=== PATIENT | female | born 1965 | race Caucasian/White ===

== ENCOUNTER → 2020-06-29 12:40 | Outpatient (CLI) | payer BC, SELFPAY ==
--- NOTE | ~2020-06-29 | MM_ITS ---
EXAMINATION: MM screening el BI w darrin HISTORY: Screening TECHNIQUE: Craniocaudal and mediolateral oblique 3-D tomosynthesis images were obtained and synthetic 2-D images were generated. CAD analysis was submitted and interpreted. COMPARISON: Comparison to multiple prior studies sequentially, with oldest reviewed study dated 12/2014. BREAST PARENCHYMAL COMPOSITION: The breasts are heterogeneously dense, which may obscure small masses . FINDINGS: There is no evidence of suspicious mass, calcification, or architectural distortion to sugg est malignancy in either breast. There has been no suspicious interval change. IMPRESSION: 1. No mammographic evidence of malignancy. 2. Recommend routine screening mammography in one year. BI-RADS Category 1: Negative Reviewed, dictated and finalized at location D.
== END ==
PROVIDERS: Visit Provider Obstetrics & Gynecology
DX: Z12.31 Encounter for screening mammogram for malignant neoplasm of breast (principal)
CPT/HCPCS: 77063; 77067

== ENCOUNTER → 2021-07-03 11:02 | Outpatient (CLI) | payer BC, SELFPAY ==
--- NOTE | ~2021-07-03 | MM_ITS ---
EXAMINATION: MM screening el BI w darrin HISTORY: Screening TECHNIQUE: Craniocaudal and mediolateral oblique 3-D tomosynthesis images were obtained and synthetic 2-D images were generated. CAD analysis was submitted and interpreted. COMPARISON: Comparison to multiple prior studies sequentially, with oldest reviewed study dated 04/11. BREAST PARENCHYMAL COMPOSITION: The breasts are heterogeneously dense, which may obscure small masses . FINDINGS: There are developing asymmetries in the subareolar location of the left breast on CC view. The right breast is stable without evidence for malignancy. There are scattered benign calcifications . IMPRESSION: 1. Developing left breast asymmetries. 2. Additional mammographic views and possible breast ultrasound are recommended. BI-RADS Category 0: Incomplete: Needs additional imaging evaluation. Reviewed, dictated and finalized at location A. IMPRESSION: 1. Developing left breast asymmetries. 2. Additional mammographic views and possible breast ultrasound are recommended . BI-RADS Category 0: Incomplete: Needs additional imaging evaluation.
== END ==
PROVIDERS: Visit Provider Obstetrics & Gynecology
DX: Z12.31 Encounter for screening mammogram for malignant neoplasm of breast (principal); R92.8 Other abnormal and inconclusive findings on diagnostic imaging of breast
CPT/HCPCS: 77063; 77067

== ENCOUNTER → 2021-07-21 08:01 | Outpatient (CLI) | payer BC, SELFPAY ==
--- NOTE | ~2021-07-21 | MM_ITS ---
EXAMINATION: MM diagnostic el LT w darrin HISTORY: Focal asymmetries of the left breast on screening mammogram TECHNIQUE: Additional 3-D tomosynthesis images of the left breast were performed and synthetic 2-D im ages were generated. CAD analysis was submitted and interpreted. COMPARISON: Prior mammograms dating back to 06/08/2019 FINDINGS: There is a return to baseline fibroglandular appearance with spot compression of the left b reast in the area questioned on screening mammogram. Scattered benign-appearing calcifications are pr esent. IMPRESSION: 1. No mammographic evidence of malignancy. 2. Recommend routine screening mammography in one year. BI-RADS Category 2: Benign finding(s). Reviewed, dictated and finalized at location A.
== END ==
PROVIDERS: Visit Provider Obstetrics & Gynecology
DX: R92.8 Other abnormal and inconclusive findings on diagnostic imaging of breast (principal)
CPT/HCPCS: 77061; 77065; G0279

== ENCOUNTER → 2022-08-20 11:21 | Outpatient (CLI) | payer BC, SELFPAY ==
--- NOTE | ~2022-08-20 | MM_ITS ---
EXAMINATION: MM screening el BI w darrin HISTORY: Screening mammogram TECHNIQUE: Craniocaudal and mediolateral oblique 3-D tomosynthesis images were obtained and synthetic 2-D images were generated. CAD analysis was submitted and interpreted. COMPARISON: 07/21/2021 diagnostic left mammogram 07/03/2021, 06/29/2020 bilateral screening mammogram examinations BREAST PARENCHYMAL COMPOSITION: The breasts are heterogeneously dense, which may obscure small masses . FINDINGS: Numerous bilateral benign calcifications. There is no evidence of suspicious mass, calcific ation, or architectural distortion to suggest malignancy in either breast. There has been no suspicio us interval change. IMPRESSION: 1. No mammographic evidence of malignancy. 2. Recommend routine screening mammography in one year. BI-RADS Category 2: Benign finding(s). Reviewed, dictated and finalized at location A.
== END ==
PROVIDERS: PCP Obstetrics & Gynecology; Visit Provider Obstetrics & Gynecology
DX: Z12.31 Encounter for screening mammogram for malignant neoplasm of breast (principal)
CPT/HCPCS: 77063; 77067

== ENCOUNTER → 2023-09-27 12:03 | Outpatient (CLI) | payer BC, SELFPAY ==
--- NOTE | ~2023-09-27 | MM_ITS ---
EXAMINATION: MM screening el BI w darrin HISTORY: Screening mammogram TECHNIQUE: Craniocaudal and mediolateral oblique 3-D tomosynthesis images were obtained and synthetic 2-D images were generated. CAD analysis was submitted and interpreted. COMPARISON: 08/20/2022, 07/21/2021, 07/03/2021, 06/29/2020 BREAST PARENCHYMAL COMPOSITION: The breasts are heterogeneously dense, which may obscure small masses . FINDINGS: RIGHT BREAST: No suspicious mass, calcification, or architectural distortion are identified to sugges t malignancy. There has been no suspicious interval change. LEFT BREAST: An asymmetry is present in the posterior third outer breast 9 cm from the nipple on the craniocaudal view. IMPRESSION: 1. Left breast asymmetry. 2. Additional mammographic views and possible breast ultrasound are recommended. BI-RADS Category 0: Incomplete: Needs additional imaging evaluation. Reviewed, dictated and finalized at location A. IMPRESSION: 1. Left breast asymmetry. 2. Additional mammographic views and possible breast ultrasound are recommended . BI-RADS Category 0: Incomplete: Needs additional imaging evaluation.
== END ==
PROVIDERS: PCP Obstetrics & Gynecology; Visit Provider Obstetrics & Gynecology
DX: Z12.31 Encounter for screening mammogram for malignant neoplasm of breast (principal); R92.8 Other abnormal and inconclusive findings on diagnostic imaging of breast
CPT/HCPCS: 77063; 77067

== ENCOUNTER 2023-10-16 12:55 | Outpatient (CLI) | payer BC, SELFPAY ==
--- NOTE | ~2023-10-16 | MM_ITS ---
EXAMINATION: MM diagnostic el LT w darrin HISTORY: Asymmetries reported in the posterior third of outer left breast 9 cm from nipple on screeni ng craniocaudal view of 09/27/2023 TECHNIQUE: Additional 3-D tomosynthesis images of the left breast were performed and synthetic 2-D im ages were generated. Rolled medial craniocaudal and rolled lateral craniocaudal views. CAD analysis w as submitted and interpreted. COMPARISON: 09/27/2023 bilateral screening mammogram FINDINGS: No suspicious mass distortion is evident at the area questioned in the posterior outer left breast on 09/27/2023 screening mammogram. The prior area of asymmetry is consistent with composite sh adowing of overlapping fibroglandular stroma. IMPRESSION: 1. No mammographic evidence of malignancy 2. Routine annual mammographic screening is recommended BI-RADS Category 1: Negative Reviewed, dictated and finalized at location A. [employer]
== END 2023-10-16 12:56 | disposition home or self-care (01) ==
LOC: ANHIMG 12:58
PROVIDERS: PCP Obstetrics & Gynecology; Visit Provider Obstetrics & Gynecology
DX: R92.8 Other abnormal and inconclusive findings on diagnostic imaging of breast (principal)
CPT/HCPCS: 77061; 77065; G0279

== ENCOUNTER 2024-11-13 13:43 | Outpatient (CLI) | payer BC, SELFPAY ==
--- NOTE | ~2024-11-13 | XR_ITS ---
Right Knee Technique: AP, lateral, and sunrise views were obtained. Clinical History: Pain Findings: No fracture or dislocation is seen. Osseous alignment is anatomic. Joint spaces are preserv ed without degenerative or erosive change. Soft tissues are unremarkable. No joint effusion is seen. Impression: Unremarkable right knee radiographs. Reviewed, dictated and finalized at location . 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
== END 2024-11-13 13:44 | disposition home or self-care (01) ==
LOC: MICIMG 13:45
PROVIDERS: PCP Nurse Practitioner Family; Visit Provider Chiropractor
DX: M25.561 Pain in right knee (principal)
CPT/HCPCS: 73564

== ENCOUNTER 2024-12-21 15:40 | Outpatient (CLI) | payer BC, SELFPAY ==
--- NOTE | ~2024-12-21 | MM_ITS ---
EXAMINATION: MM screening el BI w darrin HISTORY: Screening TECHNIQUE: Craniocaudal and mediolateral oblique 3-D tomosynthesis images were obtained and synthetic 2-D images were generated. CAD analysis was submitted and interpreted. COMPARISON: Comparison to multiple prior studies sequentially, with oldest reviewed study dated 03/2020. BREAST PARENCHYMAL COMPOSITION: Not dense: There are scattered areas of fibroglandular density. FINDINGS: There is no evidence of suspicious mass, calcification, or architectural distortion to sugg est malignancy in either breast. There has been no suspicious interval change. IMPRESSION: 1. No mammographic evidence of malignancy. 2. Recommend routine screening mammography in one year. BI-RADS Category 1: Negative Reviewed, dictated and finalized at location A. TION MECHANIC
--- OUTSIDE RECORDS SUMMARY | 2024-12-21 16:33 | XMS_ITS | Referral Summary ---
Author Organization [facility] [employer] Address [address] [place] [address] Care Team Providers Care Cloth Printing Utility Worker Name Role Phone Corrine Walker MD Primary Care Provider [phone] Dexter Wilkinson MD Unavailable [phone] Source Comments [facility],non-owned Affiliates and Associated Physician Practices is amultiple site organization consisting of ambulatory clinics and hospital sitesin [place], [place], [place] and [place]. This disclosure is being madepursuant to the Care Everywhere program and may not contain all information available regarding this patient. Last updated 18.[facility] [employer] Allergies No known active allergies Medications * Be aware that medications may not be up to date on this document. Alwaysverify current medications with the patient. Medication Sig Dispensed Refills Start Date End Date Status levothyroxine (SYNTHROID) 150 MCG tablet Take 1 tablet by mouth once daily 08/27/2014 Active Active Problems Problem Noted Date Diagnosed Date Eyelid lesion, benign 09/26/2018 Immunizations Name Administration Dates Next Due INFLUENZA VACCINE 08/19/2018 Social History Tobacco Use Types Packs/Day Years Used Date Smoking Tobacco: Never Smokeless Tobacco: Never Alcohol Use Standard Drinks/Week Comments No 0 (1 standard drink = 0.6 oz pur e alcohol) Sex and Gender Information Value Date Recorded Sex Assigned at Not on file Gender Identity Not on file Sexual Orientation Not on file Plan of Treatment Not on file Care Teams Cloth Printing Utility Worker Relationship Specialty Start Date End Date Corrine Walker MD [address] [place] [address] [address] [place] [address] PCP - General 09/11/18 Dexter Wilkinson MD [address] [place] [address] Physician Obstetrics and Gynecology 09/17/18
--- OUTSIDE RECORDS SUMMARY | 2024-12-21 16:33 | XMS_ITS | Clinical Summary ---
Author Organization [facility] Address [address] [place] [address]. [place] [address] [place] [address] Care Team Providers Care Take Out Waitress Name Role Phone MichaelLidia fish Alyson [facility] Primary Care Provider + Allergies No known active allergies Medications lidocaine (LIDODERM) 5 % 4 Active SYNTHROID 125 MCG tablet 8 Active Calcium Citrate-Vitamin D ([employer] CALCIUM CITRATE +D3 MINI OR) Take 1 tablet by mouth daily. Active vitamin C (ASCORBIC ACID) 1000 MG tablet Take 1 tablet (1,000 mg total) by mouth daily. With bioflavonoid (Solaray) Active ferrous sulfate, 65 mg elemental, 325 (65 FE) MG tablet Take 1 tablet (325 mg total) by mouth daily with breakfast. Active B Complex Cap capsule Take 1 capsule by mouth daily. Active NON FORMULARY Take 1 tablet by mouth daily. SeroVital Active Active Problems No known active problems Encounters Date Type Department Care Team Description 11/13/2024 Scan [facility] Scanned, Doc Med Group Image (SCAN) from Last 3 Months Immunizations Name Administration Dates Next Due Influenza (Generic) 08/19/2018,08/19/2015,2013 Influenza Adult (Generic) 08/14/2023,10/11/2021, 08/29/2020 Shingrix 01/09/2022,09/27/2021 Tdap (Generic) 10/11/2021,03/22/2015 Family History Medical History Relation Comments retinal disease Brother Early Hearing Loss Father Esophageal cancer Father Heart Disease Father heart attack, s/ p CABG Heart Attack Maternal Grandfather small intestine cancer Maternal Grandmother Osteoarthritis Mother Retinal Detachment Mother Heart Attack Paternal Grandfather Heart Attack Paternal Grandmother Relation Status Comments Brother Father Maternal Grandfather Maternal Grandmother Mother Alive Paternal Grandfather Paternal Grandmother Social History Tobacco Use Types Packs/Day Years Used Date Smoking Tobacco: Never Smokeless Tobacco: Never Tobacco Cessation:Counseling Given: No Alcohol Use Standard Drinks/Week Comments Not Currently 3.3 (1 standard drink = 0.6 oz p ure alcohol) once a week; PHQ-2 Answer Date Recorded Patient Health Questionnaire-2 Score 0 05/08/2024 Comments No Sex and Gender Information Value Date Recorded Sex Assigned at Not on file Legal Sex Female 7:59 PM CDT Gender Identity Not on file Sexual Orientation Not on file Last Filed Vital Signs Vital Sign Reading Time Taken Comments Blood Pressure 133/83 05/08/2024 2:07 PM CDT Pulse 72 05/08/2024 2:07 PM CDT Temperature 36.6 ??C (97.9 ??F) 05/08/2024 2:07 PM CD T Respiratory Rate 16 05/08/2024 2:07 PM CDT Oxygen Saturation 97% 05/08/2024 2:07 PM CDT Inhaled Oxygen Concentration - - Weight 102.4 kg (225 lb 12.8 oz) 05/08/2024 2:07 PM CDT Height 165.1 cm (5' 5 ) 05/08/2024 2:07 PM CDT Body Mass Index 37.58 05/08/2024 2:07 PM CDT Plan of Treatment Health Maintenance Due Date Last Done Comments Hepatitis C 1984 Hepatitis B Vaccines (1 of 3 - 19+ 3-dose series) 1985 Mammogram Screening 2006 COVID-19 Vaccine ( season) 2024 11/02/2021, 05/18/2021, 04/27/2021 Influenza Adult (#1) 2024 08/14/2023, 10/11/2021, 08/29/2020, Additional history exists PHQ-2 (Physician [place]) 11/25/2024 05/08/2024 Annual Physical 05/08/2025 05/08/2024 PHQ-2 (Physician [place]) 05/08/2025 05/08/2024 Colorectal Cancer Screening FIT-DNA (3 Years) 05/22/2027 05/22/2024 DTaP, Tdap and Td Vaccines (3 - Td or Tdap) 10/11/2031 10/11/2021, 03/22/2015 Zoster Vaccines Completed 01/09/2022, 09/27/2021 Meningococcal B Vaccine Aged Out No l onger eligible based on patient's age to complete this topic Meningococcal Vaccine Aged Out No denae celestine eligible based on patient's age to complete this topic Pneumococcal Vaccine: Pediatrics (0 to 5 Years) and At-Risk Patients (6 to 64 Years) Aged Out No longer eligible based on patient's age to complete this topic RSV Immunizations Under 20 Months Aged Out No longer eligible based on patient's age to complete this topic Procedures Procedure Name Priority Date/Time Associated Diagnosis Comments IMAGE GENERIC 11/13/2024 COLOGUARD (EXACT SCIENCE) Routine 05/22/2024 8:00 AM CDT Screening for colon cancer from Last 3 Months or Most Recently Relevant to Health Maintenance Results * IMAGE GENERIC (11/13/2024) Anatomical Region Laterality Modality Other 11/13/2024 us Doc Med Group Scanned SCANNING Final Resu lt * COLOGUARD (EXACT SCIENCE) (05/22/2024 8:00 AM CDT) COLOGUARD RESULT Negative Negative [employer] [facility] (CLIA #:[id number]) Comment: NEGATIVE TEST RESULT. A negative Cologuard result indicates a low likelihood that a colorectal cancer (CRC) or advanced adenoma (adenomatous polyps with more advanced pre-malignant features) ??is present. The chance that a person with a negative Cologuard test has a colorectal cancer is less than 1 in 1500 (negative predictive value >99.9%) or has an ??advanced adenoma is less than ??5.3% (negative predictive value 94.7%). These data are based on a prospective cross-sectional study of 10,000 individuals at average risk for colorectal cancer who were screened with both Cologuard and colonoscopy. (Eboni Eng al, N Engl J Med 2014;370(14):1286- 1297) The normal value (reference range) for this assay is negative. COLOGUARD RE-SCREENING RECOMMENDATION: Periodic colorectal cancer screening is an important part of preventive healthcare for asymptomatic individuals at average risk for colorectal cancer. ??Following a negative Cologuard result, the [place] [employer] Society and U.S. Multi-Society Task Force screening guidelines recommend a Cologuard re-screening interval of 3 years. References: [place] [employer] Guideline for Colorectal Cancer Screening: https://www.cancer.org/cancer/cpckr-uvvtmi-lelawg/pznjuusiv-ivkfglidr-tffmazk/ac s-rec ommendations.html.; Gorge DK, Sandra MENA, Bonnie CamposK, Colorectal Cancer Screening: Recommendations for Physicians and Patients from the U.S. Multi-Society Task Force on Colorectal Cancer Screening , Am J Gastroenterology 2017; 112:8062-9610. TEST DESCRIPTION: Composite algorithmic analysis of stool DNA-biomarkers with hemoglobin immunoassay. ?? Quantitative values of individual biomarkers are not reportable and are not associated with individual biomarker result reference ranges. Cologuard is intended for colorectal cancer screening of adults of either sex, 45 years or older, who are at average-risk for colorectal cancer (CRC). Cologuard has been approved for use by the U.S. FDA. The performance of Cologuard was established in a cross sectional study of average-risk adults aged 50-84. Cologuard performance in patients ages 45 to 49 years was estimated by sub-group analysis of near-age groups. Colonoscopies performed for a positive result may find as the most clinically significant lesion: colorectal cancer [4.0%], advanced adenoma (including sessile serrated polyps greater than or equal to 1cm diameter) [20%] or non- advanced adenoma [31%]; or no colorectal neoplasia [45%]. These estimates are derived from a prospective cross-sectional screening study of 10,000 individuals at average risk for colorectal cancer who were screened with both Cologuard and colonoscopy. (Eboni Eng al, N Engl J Med 2014;370(14):9015-5323.) Cologuard may produce a false negative or false positive result (no colorectal cancer or precancerous polyp present at colonoscopy follow up). A negative Cologuard test result does not guarantee the absence of CRC or advanced adenoma (pre-cancer). The current Cologuard screening interval is every 3 years. ([place] [employer] and U.S. Multi-Society Task Force). Cologuard performance data in a 10,000 patient pivotal study using colonoscopy as the reference method can be accessed at the following location: www.[employer] what's [employer].com/results. Additional description of the Cologuard test process, warnings and precautions can be found at www.[employer] Networks[employer].com. STOOL STOOL SPECIMEN / Unknown 05/22/2024 8:00 AM CDT 05/23/2024 12:08 PM CDT us Lidia Rodriguez BASE MANAGER-BC BODY FLUIDS AND STOOLS O RDERABLES Final Result [employer], [facility] [address] [place] [address], [employer] (CLIA #:[id number]) [address] [place] [address] from Last 3 Months or Most Recently Relevant to Health Maintenance Insurance [facility] [address] Care Teams Take Out Waitress Relationship Specialty Start Date End Date Lidia Rodriguez, [facility]- [address], [address] [place] [id number] PCP - General Nurse Practitioner Family 04/29/24
--- OUTSIDE RECORDS SUMMARY | 2024-12-21 16:33 | XMS_ITS | Patient Health Summary ---
Author Organization [facility] Address [address] [place] [address] Care Team Providers Care Foreign Car Mechanic Name Role Phone Corrine Walker MD Primary Care Provider + [phone] Dexter Wilkinson MD Unavailable [phone] Note from [facility],non-owned Affiliates and Associated Physician Practices is amultiple site organization consisting of ambulatory clinics and hospital sitesin [place], [place], [place] and [place]. This disclosure is being madepursuant to the Care Everywhere program and may not contain all information available regarding this patient. Last updated 18.[facility] Allergies No known active allergies Medications * Be aware that medications may not be up to date on this document. Alwaysverify current medications with the patient. * levothyroxine (SYNTHROID) 150 MCG tablet(Started 08/27/2014) Take 1 tablet by mouth once daily Active Problems Problem Noted Date Diagnosed Date Eyelid lesion, benign 09/26/2018 Immunizations * INFLUENZA VACCINE(Given 08/19/2018) Social History Tobacco Use Types Packs/Day Years Used Date Smoking Tobacco: Never Smokeless Tobacco: Never Alcohol Use Standard Drinks/Week Comments No 0 (1 standard drink = 0.6 oz pur e alcohol) Sex and Gender Information Value Date Recorded Sex Assigned at Not on file Gender Identity Not on file Sexual Orientation Not on file Procedures * BIOPSY EYELID(Performed 09/26/2018) Performed for Lesion of left eyelid * CULTURE AEROBIC(Performed 05/24/2015) * VIRAL CULTURE HERPES SIMPLEX(Performed 05/24/2015) * DERMATOPATHOLOGY(Performed 11/16/2014) * CULTURE FUNGUS SKIN HAIR NAILS(Performed 11/16/2014) Results * BIOPSY EYELID (09/26/2018 3:50 PM CDT) Narrative Dee Taylor MD - 09/26/2018 3:50 PM CDT Dee Taylor MD ? 09/26/2018 ??3:50 PM Minor Procedure Op Note Date of Procedure: 09/17/2018 Carla Pickens is a 53 y.o. female here for a stye, LLL. Pt reports having a freckle on the brim of her left lower lid. States that it has gotten bigger over time. States that the freckle has been there for a couple years. States that she wears contacts and the freckle is now at a point where her contacts are being affected. It seems to tear up in that area States that it makes her eye water a little. Denies any irritation, redness or swelling. Denies pain. States that the freckle has gotten worse over the past couple months. Reports that she has a history of skin tags but none on her face or near the eyes. Nothing has been used to treat the freckle. Pt is by herself during this visit. MH: Patient has a history of a flat pigmented lesion for many years on LL eyelid. Starting in May she noticed that it was becoming more elevated and growing. Has been having more watering of the eye. She goes to [facility] for her contacts. She then called her insurance company for a recommendation, and found Dr. Taylor's name. Last seen at [facility] 05/07/2018 and sees them yearly for check ups. This last time they did not slovak or clean the gas permeable contacts as usual. Past Medical History: No date: Hypothyroidism Current Outpatient Prescriptions: levothyroxine (SYNTHROID) 150 MCG tablet Take 1 tablet by mouth once daily Disp: ??Rfl: ?? No current facility-administered medications for this visit. No Known Allergies Attending: Dee Taylor MD Roving Carrier(s): Hyun Mtz MD Anesthesia: ??Local Infiltration Diagnosis: Patient Active Problem List Diagnosis ? ? Eyelid lesion, benign Procedure: Plastics/Facial: ?? 54130 - excision eyelid lesion Physical Exam/Indications: ??Left lower eyelid lesion Procedure Description: After risks, benefits and alternatives were discussed, an informed consent was signed and the patient was reclined in the exam chair. A drop of proparacaine was instilled in the left fornix and a cotton tip applicator soaked in proparacaine was then placed in the fornix. A 1 % lidocaine with epinephrine mixture was then infiltrated into the left lower eyelid. A 15 blade was then used to remove the lesion in its entirety. Hot tip cautery was used to maintain hemostasis. Maxitrol ophthalmic ointment was then placed on the wound at the end of the procedure. The patient tolerated the procedure very well and recovered without difficulty. All sponges, needles and instruments were accounted for at the end of the procedure. The attending was present for the entire case from start to finish. EBL: minimal Complications: ??none Follow Up: phone call in 1 week, sooner if any problems. Hyun Mtz MD 09/17/2018 5:19 PM [X] ??Patient seen and examined. Attending present for entire procedure from start to finish. Dee Taylor MD Hyun Mtz MD PROCEDURE/MINOR SURG ICAL ORDERABLES * CULTURE AEROBIC (05/24/2015 12:00 AM CDT) Aerobic Bacterial Culture Final report [facility] Result 1 [facility] Comment:No growth in 36 - 48 hours. Skin (tissue) specimen (specimen) 05/24/2015 05/24/2015 9:21 PM CDT Narrative [facility]) - 05/27/2015 3:11 PM CDT Specimen Type->Skin Performed at: ??01 - [facility] [address] ??[id number] Dredge Mechanic: Nikolay Chowdhury PhD, Phone: ??[phone] [facility] - MICROBIOLOGY O RDERABLES [facility] * (ABNORMAL) VIRAL CULTURE HERPES SIMPLEX (05/24/2015 12:00 AM CDT) Herpes Simplex Virus Culture Without Typing Positive(A ) [facility] Skin (tissue) specimen (specimen) 05/24/2015 05/24/2015 9:21 PM CDT Narrative [facility] ([place]) - 05/27/2015 3:11 PM CDT Specimen Type->Skin Performed at: ??01 - [facility] ??[id number] Dredge Mechanic: Nikolay Chowdhury PhD, Phone: ??[phone] [facility] - MICROBIOLOGY O RDERABLES [facility] ANTHONY RUI) * PATHOLOGY TISSUE FOR DERMATOLOGY (11/16/2014 12:00 AM WATER/WASTEWATER PROJECT ENGINEER) Result CASE: [id number] PATIENT: CARLA PICKENS PATHOLOGIC DIAGNOSIS: B/L great toenails: COMPACT KERATIN CONSISTENT WITH NAIL PLATE (see microscopic description) CLINICAL DATA: Tinea vs other. GROSS DESCRIPTION: Received is one formalin filled container labeled with the patient's name and designated B/L great toenails. The specimen consists of nail clippings measuring 0d2h5ib, 9y4a6sl, ??4o6s5ad. MICROSCOPIC DESCRIPTION: Sections show nail plate. PAS stained sections do not highlight fungal organisms. ??Bacteria are present within the nail plate. Electronically signed out by Wendie Jensen M.D. 11/23/2014 10:35:18AM [facility] Comment: Performed at: Dermatopathology Laboratory [facility] - Department of Dermatology [address] [place] [address] 5th [place] [address] Phone number: [phone] FAX: [phone] Skin (tissue) specimen (specimen) 11/16/2014 11/19/2014 Narrative [facility] - 11/23/2014 10:36 AM WATER/WASTEWATER PROJECT ENGINEER Specimen A: Type->Excision ?Site->B/L Great toenails ?History->Yellowish discoloration and thickening of toenails ?Impression->Tinea vs Other ?Check Margins:->No ?Prior Biopsy->No Fouzia Banegas MD LAB - PATHOLOGY/CY TOLOGY ORDERABLES Performing Organization Address [facility]/ZIP Co de Phone Number [facility] [facility] 5[address] Floor Lab B [place], [place] [address] [phone] * CULTURE FUNGUS SKIN HAIR NAILS (11/16/2014) Culture Fungus SEE NOTE [facility] ([facility]) Comment: ??CULTURE, FUNGUS, SKIN, HAIR OR NAILS ?MICRO NUMBER: ?[id number] ??TEST STATUS: ? FINAL ??SPECIMEN SOURCE: ?? NAIL ??SPECIMEN QUALITY: ??ADEQUATE ??RESULT: ?No fungal growth at 4 Weeks REPORT COMMENT: SPECIMEN TYPE->NAIL Test Performed at: [facility] ??[id number] EVARISTO PETERSEN MD Nail specimen (specimen) 11/16/2014 11/17/2014 2:59 AM WATER/WASTEWATER PROJECT ENGINEER Narrative [facility] ([facility]) - 12/14/2014 10:00 AM WATER/WASTEWATER PROJECT ENGINEER Specimen Type->Nail Fouzia Banegas MD LAB - MICROBIOLOGY ORDERABLES Performing Organization Address [facility]/ZIP Co de Phone Number [facility] ([facility]) Care Teams Foreign Car Mechanic Relationship Specialty Start Date End Date Corrine Walker MD [address] [place] [id number] PCP - General 09/11/18 Dexter Wilkinson MD [address] [place] [address] Physician Obstetrics and Gynecology 09/17/18
--- OUTSIDE RECORDS SUMMARY | 2024-12-21 16:33 | XMS_ITS | Clinical Summary ---
Author Organization [facility]. Address [address] [place] [address] Care Team Providers Care Electric Distribution Checker Name Role Phone Corrine Walker MD Primary Care Provider + [phone] Dexter Wilkinson MD Unavailable [phone] Source Comments [facility],non-owned Affiliates and Associated Physician Practices is amultiple site organization consisting of ambulatory clinics and hospital sitesin [place], [place], [place] and [place]. This disclosure is being madepursuant to the Care Everywhere program and may not contain all information available regarding this patient. Last updated 18.[facility]. Allergies No known active allergies Medications * [...] Administration Dates Next Due INFLUENZA VACCINE 08/19/2018 Family History Medical History Relation Name Comments Cancer - Skin, Melanoma Father Cancer - Other Sister Relation Name Status Comments Father Sister Social History Tobacco Use Types Packs/Day Years Used Date Smoking Tobacco: Never Smokeless Tobacco: Never Alcohol Use Standard Drinks/Week Comments No 0 (1 standard drink = 0.6 oz pur e alcohol) Sex and Gender Information Value Date Recorded Sex Assigned at Not on file Gender Identity Not on file Sexual Orientation Not on file Plan of Treatment Health Maintenance Due Date Last Done Comments COLOGUARD (AGES 45-75) - COL ON CA SCREENING 1966 COLON MONITORING 1966 COLONOSCOPY - COLON CA SCREENING 1966 CT COLONOGRAPHY - COLON CA SCREENING 1966 Colorectal Cancer Screening 1966 FIT - COLON CA SCREENING 1966 FLEX SIG - COLON CA SCREENING 1966 LIPID TESTING 1966 MAMMOGRAM 1966 PAP SMEAR 1966 HIV SCREENING 1981 HEPATITIS C SCREENING 06/30/1984 DTAP/TDAP/TD VACCINES (1 - Tdap) 1985 HEPATITIS B VACCINE (1 of 3 - 19+ 3-dose series) 1985 PNEUMOCOCCAL VACCINE 50+ (1 of 1 - PCV) 2016 ZOSTER VACCINE (1 of 2) 2016 COVID-19 VACCINE ( - 2023-2 5 season) 2024 INFLUENZA VACCINE (#1) 2024 08/19/2018 DEPRESSION SCREENING 11/25/2024 HIB VACCINE Aged Out No longer eligi ble based on patient's age to complete this topic HPV VACCINE Aged Out No longer eligi ble based on patient's age to complete this topic MENINGOCOCCAL (Group B) VACCINE Aged Out No longer eligible based on patient's age to complete this topic MENINGOCOCCAL VACCINE Aged Out No denae celesitne eligible based on patient's age to complete this topic PNEUMOCOCCAL VACCINE Aged Out No long er eligible based on patient's age to complete this topic Care Teams Electric Distribution Checker Relationship Specialty Start Date End Date Corrine Walker MD [address] [place] [address] [address] [id number] PCP - General 09/11/18 Dexter Wilkinson MD [address] [place] [address] Physician Obstetrics and Gynecology 09/17/18
== END 2024-12-21 15:41 | disposition home or self-care (01) ==
LOC: ANHIMG 15:52
PROVIDERS: PCP Nurse Practitioner Family; Visit Provider Obstetrics & Gynecology
DX: Z12.31 Encounter for screening mammogram for malignant neoplasm of breast (principal)
CPT/HCPCS: 77063; 77067

== ENCOUNTER 2025-06-28 08:42 | Outpatient (CLI) | payer BC, SELFPAY ==
--- NOTE | ~2025-06-28 | MR_ITS ---
MRI of the right knee Clinical history: Pain Technique: Coronal proton density and proton density-weighted images, sagittal proton-density and T2 fat-sat images, and axial proton-density fat-saturated images were acquired. Findings: Anterior and posterior cruciate ligaments are intact. Medial collateral ligament and the la teral collateral ligament complex are intact. Popliteus tendon is intact. There is a large vertical tear of the posterior horn of the medial meniscus. Complex tearing extendin g into the body segment. No lateral meniscal tear seen. Articular cartilage is well preserved throughout the knee. Bone marrow signals are unremarkable. Extensor mechanism is intact. Minimal joint effusion present. No Gonzáles's cyst. Impression: Tearing of the posterior horn and body segment of the medial meniscus, as detailed above. Reviewed, dictated and finalized at location M. Impression: Tearing of the posterior horn and body segment of the medial meniscus, as fatoumata led above.
== END 2025-06-28 08:43 | disposition home or self-care (01) ==
LOC: MICIMG 08:43
PROVIDERS: PCP Chiropractor; Visit Provider Nurse Practitioner Family
DX: S83.241A Other tear of medial meniscus, current injury, right knee, initial encounter (principal); X58.XXXA Exposure to other specified factors, initial encounter
CPT/HCPCS: 73721

== ENCOUNTER 2025-10-27 01:25 | Day surgery (SDC) | payer OTHER, BC, SELFPAY ==
[2025-10-20 14:53] VITALS: BMI 38.5
--- NOTE | 2025-10-20 15:00 | PC.NURSE ---
[facility] has started construction of its new state of the art ER which will open Spring 2026. With this, we anticipate parking may be a challenge for some our surgical patients and families. Parking spaces are limited but are available for all Surgical, obstetrics, and ER patients sharing this lot. If you arrive and find you are having a hard time finding a parking space, please note that we understand the challenges, please drive around the hospital and park near Hospital Entrance 1. When you enter this entrance, you can ask a volunteer to direct or take you back to the surgical waiting area to check in. We appreciate everyone?s understanding of these expected challenges while we build for your future. Report to the Outpatient Waiting Room, entrance under the green pavilion located off [address], at time _1130 on date _10/27/25_. Planned Procedure Time: _1330_.? Time changes happen often and if your time is changed the preop area will call you the afternoon before. - You and your visitor will be asked to self-screen and do not enter if you have any COVID symptoms. Please call surgeon if you need to reschedule. - A mask is optional within the hospital at this time. Patients may have clear liquids (water, carbonated beverages, clear teas, apple juice) until 3 hours prior to surgery with a maximum of 20 ounces. - No food from midnight until time of surgery and no smoking, or chewing tobacco (or any form of nicotine). No chewing gum, candy or mints. Take only the following medications with a SIP of water on the morning of surgery: SYNTHROID DO NOT STOP ANY OF YOUR OTHER PRESCRIPTION MEDICATIONS PRIOR TO SURGERY EXCEPT THE FOLLOWING Hold all vitamins and supplements for 3 days per anesthesiologist. Medications to discontinue per physician Date to take last dose Please no make-up, nail turkish, hairspray, perfume, deodorant, or body powder the day of surgery.? No jewelry (including any body piercings) or valuables the day of surgery, leave them at home.? Please take a shower or bath the night before, or the morning of, surgery with an antibacterial soap.? Wear comfortable, loose fitting clothing.? Children are encouraged to wear pajamas. - Jewelry must be removed prior to entering the operating room.? Rings and piercings that are not removed may be cut off. - The hospital will not accept responsibility for valuables.? - Please leave all valuables, including medications, at home the day of surgery. If you are going home after surgery, a licensed motorcoach driver must drive you home.? - NO public transportation without another adult if you receive anesthesia. - We recommend that an adult stay with you for 24 hours following discharge. - We also recommend that you do not drive, make important decision, drink alcoholic beverages, or take any drugs that were not prescribed by your health care provider for at least 24 hours after your discharge time. For Pediatric surgeries, we recommend two adults accompany the child home. Follow any additional instructions given to you from your surgeon. Telephone instructions given to PATIENT_and asked if any additional questions and then verbalized understanding. Patient advised to call surgeon office or pre surgery nurse liaison [phone] if any additional questions.
[2025-10-27] VITALS (8 sets, daily range): BP systolic 109–145; BP diastolic 64–82; PULSE 73–97; RESP 12–20; TEMP 36.2–36.4; O2SAT 99–100
--- NOTE | 2025-10-27 07:24 | WPDHPUPDATE1 ---
History and Physical Update Update Date/Time: 10/27/25 07:24 History and Physical has been reviewed, including an updated exam of the patient. There are NO changes in the patient's condition. Risks, benefits, and alternatives have been discussed and questions answered. Patient agrees to proceed with procedure.
[2025-10-27] MEDS: LACTATED RINGERS 1,000 ML 30 ML IV CONT (13:00)
[2025-10-27] MEDS: ACETAMINOPHEN 500 MG TABLET 1000 MG PO (13:17)
[2025-10-27] MEDS: CELECOXIB 200 MG CAPSULE PO (13:18)
--- NOTE | 2025-10-27 13:54 | P.PNAN_ITS ---
Anes - Initial Pre Proc Eval Procedure: Operation Date: 10/27/25 13:30 Proposed Procedures p Right Knee Arthroscopy, Proceed As Indicated - Delfin Griffin MD Date/Time: 10/27/25 13:54 Surgeon: Delfin Griffin MD Pre Op Diagnosis: rt knee medial meniscus tear Patient Data Age: 60 Gender: F Height: 1.65 m Weight: 106.5 kg Last Vital Signs Temp 97.6 F 10/27/25 13:19 Pulse 97 10/27/25 13:19 Resp 16 10/27/25 13:19 BP 145/77 H 10/27/25 13:19 Pulse Ox 99 10/27/25 13:19 O2 Del Method Room Air 10/27/25 13:19 Allergies Allergy/AdvReac Type Severity Reaction Status Date / Time No Known Drug Allergies Allergy unknown Verified 10/20/25 14:48 Home Medications ?Medication ?Instructions ?Recorded ?Confirmed ?Type levothyroxine 175 mcg tablet 175 mcg PO DAILY 09/29/19 10/20/25 History (Synthroid) chlorhexidine gluconate 4 % 1 applic topical ONCE #237 mL 10/19/25 10/20/25 Rx topical liquid (Hibiclens) Patient hx anesthesia problems: none Family hx anesthesia problems: none Results Review: All pre-operative results and documents have been reviewed as part of the pre- operative evaluation. [facility] Past Medical History Medical History Right knee injury Right knee pain Hypothyroidism Surgical History Surgical History History of nasal septoplasty 11/2024 History of partial hysterectomy 2004 Social History Social History Smoking status: Never smoker Alcohol intake: current Substance use: never Living arrangements: with family Gender identity (if verbalized by the patient): Female Anes - Eval Final PreProcedure Day of Procedure 10/27/25 13:54 Patient weight: obese Lungs: normal air movement Airway: Mallampati scale class II Neurological: alert and oriented Last oral intake: >/= 8 hours ASA classification: II Emergent: no Anesthetic plan: proceed Anesthesia type and monitoring: general LMA and standard monitoring Results Review: All pre-operative results and documents have been reviewed as part of the pre- operative evaluation. BMI 39, hypothyroidism, pt active still despite knee pain, walking 1 mile, 1-2 fos, no cp or sob. Informed Consent: The patient's anesthetic plan and its attendant risks and benefits were discussed with the patient/family/POA. Questions were solicited and answers provided to the satisfaction of the patient/family/POA.
[2025-10-27] MEDS: ceFAZolin 2 GM in SODIUM CHLORIDE 0.9% IV 50 ML 100 ML IVPB (14:20)
[2025-10-27] MEDS: fentaNYL CITRATE INJ (*CRX) 100 MCG/2 ML VIAL 25 MCG IV PUSH ×4 (15:52→16:04)
--- NOTE | 2025-10-27 16:12 | W.PM.PROC2 ---
Procedure Note - Detailed Date of Procedure 10/27/25 Pre-op Diagnosis rt knee medial meniscus tear Post-op Diagnosis Same Procedure Performed RIGHT KNEE SCOPE Surgeon Delfin Griffin MD Anesthesia General Description of Procedure PATIENT WAS TAKEN TO THE OR. RIGHT LEG WAS PREPPED AND DRAPED STERILE. TROCARS WERE PLACED IN THE USUAL FASHION. CAMERA WAS INTRODUCED. THERE WAS MILD CHONDROMALACIA TO THE PATELLA FEMORAL JOINT. THERE WAS A LOT OF SYNOVITIS IN ALL COMPARTMENTS. THE MEDIAL COMPARTMENT SHOWED CHONDROMALACIA TO THE MEDIAL FEMORAL CONDYLE. A SHAVER WAS USED TO PREFORM A CHONDROPLASTY. THERE WAS A LARGE COMPLEX MEDIAL MENISCUS TEAR. THE TEAR WAS RESECTED WITH A BITER AND A SHAVER. THERE WAS A FULL THICKNESS DEFECT IN THE ARTICULAR CARTILAGE OF BOTH THE MEDIAL FEMORAL CONDYLE AND THE MEDIAL PLATEAU. CHONDROPLASTY WAS PREFORMED IN BOTH THOSE AREAS. THE ACL WAS INTACT. THE LATERAL MENISCUS WAS NOT TORN. THE LATERAL COMPARTMENT HAD MINIMAL CHONDROMALACIA AT THE LATERAL PLATEAU. CHONDROPLASTY WAS PREFORMED. A SYNOVECTOMY WAS PREFORMED. THE PATELLO FEMORAL JOINT UNDERWENT CHONDROPLASTY. SYNOVECTOMY WAS PREFORMED IN THE SUPERIOR MEDIAL COMPARTMENT. THE WOUNDS WERE APPROXIMATED WITH 4.0 NYLON. STERILE DRESSING WAS APPLIED. PATIENT WAS EXTUBATED. Estimated Blood Loss 5 Complications No immediate complications Condition Stable Disposition PACU
[2025-10-27] MEDS: oxyCODONE HCL (*CRX) 5 MG TAB IR PO (17:12)
== END 2025-10-27 17:40 | disposition home or self-care (01) ==
PROVIDERS: PCP Chiropractor; Visit Provider Orthopaedic Surgery
PROC: (CPT 29870; principal; 2025-10-27 13:30)
DX: S83.231A Complex tear of medial meniscus, current injury, right knee, initial encounter (principal); M94.261 Chondromalacia, right knee; M65.861 Other synovitis and tenosynovitis, right lower leg; G89.29 Other chronic pain; X58.XXXA Exposure to other specified factors, initial encounter; E03.9 Hypothyroidism, unspecified; E66.9 Obesity, unspecified; Z68.39 Body mass index [BMI] 39.0-39.9, adult; Z98.890 Other specified postprocedural states
CPT/HCPCS: 29881; J0690; A9270; J1100; J2003; J2250; J2405; J2704; J3010; J7120